=== PATIENT | female | born 1990 | race Caucasian/White ===

== ENCOUNTER → 2023-08-26 | Outpatient (CLI) | payer BC, SELFPAY ==
[2023-08-30 04:06] LABS: Chlamydia By Nucleic Acid AMP Negative (Negative); Gonococcus By Nucleic Acid AMP Negative (Negative)
[2023-08-31 10:10] LABS: HPV APTIMA, High Risk Negative (Negative)
== END | disposition home or self-care (01) ==
PROVIDERS: Visit Provider Advanced Practice Midwife
DX: O09.90 Supervision of high risk pregnancy, unspecified, unspecified trimester (principal); Z3A.00 Weeks of gestation of pregnancy not specified
CPT/HCPCS: 87086; 87088; 87491; 87591; 87624; 88175; G0145

== ENCOUNTER → 2023-10-22 | Outpatient (CLI) | payer BC, SELFPAY ==
[2023-10-22 10:56] LABS: Absolute Lymphocyte Count 1.58 X10^3/uL (0.83-4.51); Absolute Neutrophil Count 6.7 X10^3/uL (2.0-7.7); Basophil# 0.02 X10^3/uL; Basophil% 0.2 % (0-1); Eosinophil# 0.05 X10^3/uL; Eosinophils% 0.5 % (0-5); Hematocrit 40.7 % (37-47); Hemoglobin 14.2 g/dL (12.0-15.0); Lymphocyte # 1.58 X10^3/ul (0.83-4.51); Lymphocyte % 17.3 % (19-41); Mean Corp Hgb Conc 34.9 g/dL (32-36); Mean Corpuscular Hgb 33.2 pg (27.0-32.0); Mean Corpuscular Volume 95.1 fL (81-99); Mean Platelet Vol. 11.5 fl (6.2-12.0); Monocyte# 0.76 X10^3/uL; Monocyte% 8.3 % (0-10); NRBC Flagged by Analyzer 0 % (0-5); Neutrophil # 6.68 X10^3/uL (2.7-7.7); Neutrophil % 73.3 % (47-70); Platelet Count 201 K/mm3 (150-450); RBC Distribution Width CV 12.8 % (11.6-14.6); RBC Distribution Width SD 44.5 fl (35.1-43.9); Red Blood Count 4.28 M/mm3 (4.2-5.4); White Blood Count 9.1 K/mm3 (4.4-11.0)
[2023-10-22 12:08] LABS: HIV - WCH Non-Reactive (Nonreactive); Hepatitis B Surface Antigen Non-Reactive (Nonreactive); Hepatitis C Antibody Non-Reactive (Nonreactive); Rubella IgG Reactive (Nonreactive); Syphilis Antibodies Non-reactive
== END | disposition home or self-care (01) ==
PROVIDERS: Referring Provider Advanced Practice Midwife; Visit Provider Advanced Practice Midwife
DX: O09.90 Supervision of high risk pregnancy, unspecified, unspecified trimester (principal)
CPT/HCPCS: 36415; 85025; 86703; 86762; 86780; 86803; 86850; 86900; 86901; 87340

== ENCOUNTER → 2023-12-30 | Outpatient (CLI) | payer BC, SELFPAY ==
[2023-12-30 10:23] LABS: Absolute Lymphocyte Count 1.36 X10^3/uL (0.83-4.51); Absolute Neutrophil Count 7.4 X10^3/uL (2.0-7.7); Basophil# 0.03 X10^3/uL; Basophil% 0.3 % (0-1); Eosinophil# 0.06 X10^3/uL; Eosinophils% 0.6 % (0-5); Hematocrit 40.5 % (37-47); Hemoglobin 13.8 g/dL (12.0-15.0); Lymphocyte # 1.36 X10^3/ul (0.83-4.51); Lymphocyte % 13.6 % (19-41); Mean Corp Hgb Conc 34.1 g/dL (32-36); Mean Platelet Vol. 11.5 fl (6.2-12.0); Monocyte# 1.04 X10^3/uL; Monocyte% 10.4 % (0-10); NRBC Flagged by Analyzer 0 % (0-5); Neutrophil # 7.41 X10^3/uL (2.7-7.7); Neutrophil % 74.4 % (47-70); Platelet Count 190 K/mm3 (150-450); RBC Distribution Width CV 12.4 % (11.6-14.6); RBC Distribution Width SD 42.8 fl (35.1-43.9); Red Blood Count 4.31 M/mm3 (4.2-5.4)
[2023-12-30 10:25] LABS: Glucose Challenge Gest 1H 50g 96 mg/dL (70-140)
[2023-12-30 11:00] LABS: HIV - WCH Non-Reactive (Nonreactive); Syphilis Antibodies Non-reactive
== END | disposition home or self-care (01) ==
LOC: PAVLAB 09:55
PROVIDERS: Referring Provider Obstetrics & Gynecology; Visit Provider Obstetrics & Gynecology
DX: O09.92 Supervision of high risk pregnancy, unspecified, second trimester (principal); Z3A.27 27 weeks gestation of pregnancy
CPT/HCPCS: 36415; 82950; 85025; 86703; 86780

== ENCOUNTER 2024-01-10 20:25 | Outpatient (CLI) | payer BC, SELFPAY ==
[2024-01-10 20:38] VITALS: PULSE 81; O2SAT 97
[2024-01-10 20:40] VITALS: BP 108/69; PULSE 87
[2024-01-10 20:41] VITALS: RESP 18; TEMP 36.8
[2024-01-10 20:45] VITALS: BMI 27.3
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
== END 2024-01-10 21:35 | disposition home or self-care (01) ==
LOC: WPOUT 20:27 → WP 20:28
PROVIDERS: Referring Provider Advanced Practice Midwife; Visit Provider Advanced Practice Midwife
DX: O43.113 Circumvallate placenta, third trimester (principal); O09.93 Supervision of high risk pregnancy, unspecified, third trimester; Z87.891 Personal history of nicotine dependence; Z3A.30 30 weeks gestation of pregnancy
CPT/HCPCS: 59025; 59050; 99221; G0378

== ENCOUNTER → 2024-02-17 | Outpatient (CLI) | payer BC, SELFPAY | END | disposition home or self-care (01) | LOC: LABSPEC 16:47 | PROVIDERS: Referring Provider Obstetrics & Gynecology; Visit Provider Obstetrics & Gynecology | DX: O09.92 Supervision of high risk pregnancy, unspecified, second trimester (principal); Z3A.00 Weeks of gestation of pregnancy not specified | CPT/HCPCS: 87081 ==

== ENCOUNTER 2024-03-14 13:00 | Inpatient (IN) | payer BC, SELFPAY ==
[2024-03-14] VITALS (44 sets, daily range): BP systolic 96–131; BP diastolic 53–70; PULSE 64–90; RESP 16–20; TEMP 36.1–36.8; O2SAT 89–100; BMI 29.9
[2024-03-14 12:56] LABS: ROM Internal Control Test YES-OK TO RESULT pt. (Internal QC)
[2024-03-14 12:58] LABS: ROM Patient Test POSITIVE (Negative); Record Kit Lot#, ROM+ K1972
[2024-03-14] MEDS: Lactated Ringers 1,000 ML 50 ML IV (14:20)
[2024-03-14] MEDS: Oxytocin 15 Units/NS 250ml 15 UNITS/250 ML IV.SOLN 2 UNITS IV (14:50)
[2024-03-14 14:54] LABS: Absolute Lymphocyte Count 1.98 X10^3/uL (0.83-4.51); Absolute Neutrophil Count 8.8 X10^3/uL (2.0-7.7); Basophil# 0.03 X10^3/uL; Basophil% 0.3 % (0-1); Eosinophil# 0.04 X10^3/uL; Eosinophils% 0.3 % (0-5); Hematocrit 43.8 % (37-47); Lymphocyte # 1.98 X10^3/ul (0.83-4.51); Lymphocyte % 16.7 % (19-41); Mean Corp Hgb Conc 34.2 g/dL (32-36); Mean Corpuscular Hgb 32.3 pg (27.0-32.0); Mean Corpuscular Volume 94.4 fL (81-99); Mean Platelet Vol. 12.1 fl (6.2-12.0); Monocyte% 8.4 % (0-10); NRBC Flagged by Analyzer 0 % (0-5); Neutrophil # 8.78 X10^3/uL (2.7-7.7); Neutrophil % 73.8 % (47-70); Platelet Count 190 K/mm3 (150-450); RBC Distribution Width CV 13.2 % (11.6-14.6); RBC Distribution Width SD 46.4 fl (35.1-43.9); Red Blood Count 4.64 M/mm3 (4.2-5.4); White Blood Count 11.9 K/mm3 (4.4-11.0)
--- NOTE | 2024-03-14 17:58 | HP.PCM.OB_ITS ---
HPI - General General Date of Admission: 03/14/24 HPI Narrative MELISSA FORTUNE, is a 33 y/o @ 40 weeks 0 days who presents to L&D with spontaneous rupture of membranes for possibly 24 hours. She states that her membranes were stripped yesterday by Bernie Santiago in the office and she s tarted leaking fluid almost immediately after that. This did not stop and she presented to L&D at noon today. Her ROM + was positive. She denies vaginal bleeding, fever, or decreased movement. Maternal Data Information ZELALEM Calculator Estimated Delivery Date Method Current WG Current Estimate 03/14/24 LMP (Certain) 40w 0d PFSH PFSH Medical History (Updated 03/14/24 @ 18:[address] Jayda Caraballo, DO) depression Anxiety ASCUS of cervix with negative high risk HPV Bartholin's gland cyst Home Medications ?Medication ?Instructions ?Recorded ?Last Taken ?Type multivitamin no.47-iron fum 27 1 cap PO DAILY 08/20/23 01/09/24 History mg-folate no.1 1 mg-dha 300 mg capsule (PNV-DHA) buspirone 7.5 mg tablet 7.5 mg PO TID PRN anxiety #60 tabs 01/20/24 Unknown Rx Allergy/AdvReac Type Severity Reaction Status Date / Time Tetracyclines Allergy Severe Hives Verified 03/14/24 14:20 Family History Mother Hepatitis, autoimmune Aunt Thyroid disorder Father Thyroid disorder, Onset Age: 37 Grandfather Cancer, Onset Age: 73 Paternal- colon Grandmother Heart disease Maternal- A-fib Sister Autism Other Myocardial infarction Surgical History History of tonsillectomy and adenoidectomy [place] teeth extracted Social History adopted: No household members: spouse and children number of children: 1 current occupational status: unemployed current occupation: [employer] current occupational exposures/hazards: No pets and animals: Yes (Avoid litter box) pets and animals: cat(s) history of recent travel: No sexually active: Yes Smoking Status: Former smoker quit date: 10/27/20 Tobacco: How many years used: 11 Electronic Cigarette Use: with nicotine how long ago did patient quit smokin alcohol intake: current alcohol intake frequency: holidays/special occasions only details: Not while substance use type: does not use well-balanced diet: daily or most days caffeine: Yes Type: coffee Number of servings: 2 eating out: 1-3 times/week during the past year weight has: decreased > 10 lbs what type of physical activity do you participate in: bicycling frequency: 3-4 times per week duration: 15-30 minutes/day basilio/spiritism: Pentecostalism seatbelt use: always do you feel safe at home: Yes 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 Date Name GA/Weeks Outcome Route Bth Weight Gen [facility] FOB 08/17/21 Tayler 40 live - full term 7#9oz Female 34 hrs epidural Bettie Frye Delivery Date: 08/17/21 Last Updated by: Brooklynn Olmstead pt and baby HR dropped, medication given Visit Details Expected Delivery Route/Plan Labor Preferences- CB/BF classes: discussed labor support person: Uday labor intervention preferences: [] pain management options preferred: unmedicated cut cord/dad catch: [] : wants PP control planned: [] discussed possible routes of delivery and associated risks: [] special requests: [] Plans Covid status: [] Flu vaccine: [] Tdap vaccine: [] Rhogam: [] LARC form signed: [] Problem list reviewed and updated with the most current plan of care details and appropriate orders placed. Relevant counseling for the gestational age provided. Continue routine care and follow up unless otherwise noted in visit notes/problem list details OB Flowsheet Initial Weight: Not Recorded Date -?-?-?-?-?-?-?-?-?-?-?-?- EGA Weight BP Urine Prot -?-?-?-?-?-?-?-?-?-?-?-?- Glucose FHR FuHt Pres Dilation -?-?-?-?-?-?-?-?-?-?-?-?- Effaced St Visit Note 08/26/23 -?-?-?-?-?-?-?-?-?-?-?-?- 11w 2d 123 lb 6 oz 118/68 -?-?-?-?-?-?-?-?-?-?-?-?- 161 -?-?-?-?-?-?-?-?-?-?-?-?- KW-CRL cons with dates. declines NIPT. 09/23/23 -?-?-?-?-?-?-?-?-?-?-?-?- 15w 2d 126 lb 6 oz 95/59 Nega tive -?-?-?-?-?-?-?-?-?-?-?-?- Negative 155 -?-?-?-?-?-?-?-?-?-?-?-?- JV- pt having fl air of sciatic nerve pain. experienced a pelvic torsion last and saw PT. She wants to go back to them and inquires about chiropractor as well. 10/25/23 -?-?-?-?-?-?-?-?-?-?-?-?- 19w 6d 133 lb 2 oz 112/62 Nega tive -?-?-?-?-?-?-?-?-?-?-?-?- Negative 151 -?-?-?-?-?-?-?-?-?-?-?-?- MH-No VB. Very t earful. She and very concerned about MFM US results. No tachycardia today. Will have SM call. Did order echo. 11/01/23 -?-?-?-?-?-?-?-?-?-?--?-?- 20w 6d 134 lb 8 oz 99/60 Nega tive -?-?-?-?-?-?-?-?-?-?-?-?- Negative 153 -?-?-?-?-?-?-?-?-?-?-?-?- MH-No VB and fee ling good movement. Feeling better from last weeks discussion. echo not scheduled yet. 11/09/23 -?-?-?-?-?-?-?-?-?-?-?-?- 22w 0d 136 lb 95/60 Negative -?-?-?-?-?-?-?-?-?-?-?-?- Negative 145 -?-?-?-?-?-?-?-?-?-?-?-?- Sm- no vb lof no regular ctx, needs scheduled for echo, discussed weekly fht until echo and additional MFM recommendation 11/26/23 -?-?-?-?-?-?-?-?-?-?-?-?- 24w 3d 141 lb 110/60 Negative -?-?-?-?-?-?-?-?-?-?-?-?- Negative 140 -?-?-?-?-?-?-?-?-?-?-?-?- SM- echo n ext week, normal heart rate. no vb lof good fm no regular ctx. 12/20/23 -?-?-?-?-?-?-?-?-?-?-?-?- 27w 6d 145 lb 103/66 Negative -?-?-?-?-?-?-?-?-?-?-?-?- Negative 151 27 -?-?-?-?-?-?-?-?-?-?-?-?- JV- no lof, va g inal bleeding, or dec fm. needs 28 week labs still. flu shot today. tdap next time. 01/07/24 -?-?-?-?-?-?-?-?-?-?-?-?- 30w 3d 148 lb 2 oz 109/73 Nega tive -?-?-?-?-?-?-?-?-?-?-?-?- Negative 150 29 -?-?-?-?--?-?-?-?-?-?-?-?- LC- no vb/ctx/lo f. good fm. reviewed low back pain prevention. low intervention desired- recommended just breath course. 01/20/24 -?-?-?-?-?-?-?-?-?-?-?-?- 32w 2d 153 lb 6 oz 95/54 Nega tive -?-?-?-?-?-?-?-?-?-?-?-?- Negative 145 32 -?-?-?-?-?-?-?-?-?-?-?-?- JV- no lof, vagi nal bleeding, or dec fm. larc signed, tdap today. having worse and worse anxiety. will try buspar. JV- no lof, vaginal bleeding , or dec fm. larc signed, tdap today. having worse and worse anxiety. will try buspar. no suicidal ideations. 02/03/24 -?-?-?-?-?-?-?-?-?-?-?-?- 34w 2d 158 lb 99/61 Negative -?-?-?-?-?-?-?-?-?-?-?-?- Negative 130 34 -?-?-?-?-?-?-?-?-?-?-?-?- KW- no vb/lof/ct x. good fm. did not start buspar but doing well now 02/17/24 -?-?-?-?-?-?-?-?-?-?-?-?- 36w 2d 159 lb 4 oz 106/66 Nega tive -?-?-?-?-?-?-?-?-?-?-?-?- Negative 136 35 -?-?-?-?-?-?-?-?-?-?-?-?- JV_ GBS collecte d, declines pelvic exam. no complaints. 02/21/24 -?-?-?-?-?-?-?-?-?-?-?-?- 36w 6d 161 lb 111/63 Negative -?-?-?-?-?-?-?-?-?-?-?-?- Negative 120 36 -?-?-?-?-?-?-?-?-?-?-?-?- KW- no vb/lof/ct x. good fm. labor precautions 02/28/24 -?-?-?-?-?-?-?-?-?-?-?-?- 37w 6d 163 lb 98/54 Trace -?-?-?-?-?-?-?-?-?-?-?-?- Negative 125 38 -?-?-?-?-?-?-?-?-?-?-?-?- KW- no vb/lof/ct x. good fm. declines SVE. discussed labor positions and plan. 03/09/24 -?-?-?-?-?-?-?-?-?-?-?-?- 39w 2d 164 lb 97/52 Negative -?-?-?-?-?-?-?-?-?-?-?-?- Negative 130 39 Cephalic 3 -?-?-?-?-?-?-?-?-?-?-?-?- 70 -2 KW- no vb/ lof/ctx. good fm. membrane sweep requested 03/13/24 -?-?-?-?-?-?-?-?-?-?-?-?- 39w 6d 164 lb 117/76 Negative -?-?-?-?-?-?-?-?-?-?-?-?- Negative 130 40 Cephalic 4 -?-?-?-?-?-?-?-?-?-?-?-?- 80 -2 KW- no vb/ lof/ctx. good fm. membrane sweep today ROS Constitutional Constitutional: Denies change in weight, fatigue, fever(s), headache(s), poor appetite or weakness Eyes Eyes: Denies blurry vision, change in vision, seeing flashes or spots in vision ENT HEENT: Denies dizziness, headache(s), loss taste/smell or sore throat Cardiovascular Cardiovascular: Denies chest pain, dizziness, dyspnea, irregular heart rhythm, leg edema, palpitations, rapid heart rate or vomiting Respiratory/Chest Respiratory/Chest: Denies chest tightness, cough, dyspnea or breast pain Gastrointestinal Gastrointestinal: Denies abdominal pain, anorexia, constipation, cramping, diarrhea, hemorrhoids, vomiting or weight changes Genitourinary Genitourinary: Denies dysuria, flank pain, genital lesions, genital pain, urinary frequency or urinary urgency Musculoskeletal Musculoskeletal: Denies back pain, difficulty walking, joint pain, limited range of motion, muscle cramps or numbness Integumentary Integumentary: Denies lesions or unusual bruising Neurologic Neurologic: Denies abnormal movements, abnormal speech, dizziness, numbness, seizure-like activity or syncope Psychiatric Psychiatric: Denies anxiety, behavioral changes, change in appetite, change in libido, cognitive impairment, confusion, depression, difficulty concentrating, hallucinations or suicidal thoughts Endocrine Endocrinology: Denies excessive sweating, polydipsia or polyuria Hematologic/Lymphatic Hematologic/Lymphatic: Denies easy bleeding, easy bruising or lymphadenopathy Allergic/Immunologic Allergic/Immunologic: Denies itchy eyes, lip swelling, seasonal rhinorrhea, rhinitis, throat swelling, tongue swelling, eczemia, wheezing or asthma Vital Signs Vital Signs Vital Signs: 03/14/24 12:28 03/14/24 12:28 03/14/24 12:28 Temperature Temperature Source Tympanic Pulse Rate 75 Respiratory Rate Blood Pressure 118/70 BP Systolic 118 BP Diastolic 70 Pulse Ox 03/14/24 12:28 03/14/24 14:52 03/14/24 14:52 Temperature 98.0 F Temperature Source Temporal Pulse Rate Respiratory Rate 16 Blood Pressure BP Systolic BP Diastolic Pulse Ox 03/14/24 14:52 03/14/24 14:53 03/14/24 14:53 Temperature 97.2 F L Temperature Source Pulse Rate 67 Respiratory Rate Blood Pressure 100/55 L BP Systolic 100 BP Diastolic 55 Pulse Ox 03/14/24 15:16 03/14/24 15:16 03/14/24 15:21 Temperature Temperature Source Pulse Rate 64 80 Respiratory Rate Blood Pressure BP Systolic BP Diastolic Pulse Ox 99 03/14/24 15:21 03/14/24 16:08 03/14/24 16:08 Temperature Temperature Source Temporal Pulse Rate Respiratory Rate Blood Pressure 96/56 L BP Systolic 96 BP Diastolic 56 Pulse Ox 100 03/14/24 16:08 03/14/24 16:08 03/14/24 16:08 Temperature 98.0 F Temperature Source Pulse Rate 78 Respiratory Rate 16 Blood Pressure BP Systolic BP Diastolic Pulse Ox 03/14/24 17:38 03/14/24 17:38 03/14/24 17:38 Temperature 98.2 F Temperature Source Temporal Pulse Rate Respiratory Rate 20 H Blood Pressure BP Systolic BP Diastolic Pulse Ox 03/14/24 17:39 03/14/24 17:39 03/14/24 17:39 Temperature Temperature Source Pulse Rate 75 Respiratory Rate Blood Pressure 99/54 L BP Systolic 99 BP Diastolic 54 Pulse Ox 99 03/14/24 17:39 Temperature Temperature Source Pulse Rate 74 Respiratory Rate Blood Pressure BP Systolic BP Diastolic Pulse Ox Weight Weight: 164 lb Body Mass Index (BMI) 29.9 Physical Exam Const alert, oriented x3, no apparent distress and healthy appearing General Appearance: cooperative; Negative for anxious HEENT normocephalic Face and Sinus: normal facial exam Eyes EOMs intact bilaterally and no scleral icterus General Eye: normal appearance of both eyes Neck full ROM and supple Lymph Lymphatic: no lymphadenopathy noted Chest Chest: abnormal inspection of the chest Resp normal respiratory effort Effort and Inspection: able to speak in complete sentences Cardio regular rate GI soft to palpation and non-tender Inspection: gravid Palpation: soft; Negative for tender external exam normal Amniotic Fluid: ROM+plus Back/Spine no CVA tenderness Extremity normal to inspection, full ROM and no clubbing, cyanosis or edema General Extremity: Negative for calf tenderness or edema Skin Lesions: no lesions Rashes: no rashes Psych mental status grossly normal Labs Labs Labs: Blood Type A POSITIVE Antibody Screen NEGATIVE Hct 43.8 % (37-47) Hgb 15.0 g/dL (12.0-15.0) Syphilis Total Ab Non-reactive Rubella IgG Antibody Reactive (Nonreactive) Hep Bs Antigen Non-Reactive (Nonreactive) Hepatitis C Antibody Non-Reactive (Nonreactive) Chlamydia DNA (DALE) Negative (Negative) N.gonorrhoeae DNA (DALE) Negative (Negative) HIV 1&2 Antibody Non-Reactive (Nonreactive) Glucose 1 Hr 50 gm 96 mg/dL (70-140) Assessment & Plan (1) SROM (spontaneous rupture of membranes): (2) Circumvallate placenta: QUALIFIERS: Trimester: second trimester Qualified Code(s): O43.112 - Circumvallate placenta, second trimester COMMENT: growth q 4 weeks-63% (3) Former smoker: COMMENT: cigarettes & vape, quit 2020 (4) Anesthesia complication: QUALIFIERS: Encounter type: sequela Qualified Code(s): T88.59XS - Other complications of anesthesia, sequela COMMENT: epidural dropped pt and baby's HR, had to have medication to raise HR, Nausea (5) Seasonal allergies: (6) Supervision of high-risk : QUALIFIERS: Trimester: second trimester Qualified Code(s): O09.92 - Supervision of high risk , unspecified, second trimester COMMENT: PRR , ZELALEM 03/14/24, PC Tayler, Uday (7) : QUALIFIERS: Weeks of gestation: 39 weeks Qualified Code(s): Z3A.39 - 39 weeks gestation of COMMENT: GBS neg, normal anatomy, discussed genetic & carrier testing- declined (8) Hx of depression, currently : (9) Anxiety: PLAN: Plan Patient presents with PROM- no cervical change now since yesterday in the office. Starting pitocin. Pain management: no epidural. She is worried about blood pressure dropping. GBS negative. Management of any complications: none I have reviewed the [facility] and made any clinically relevant updates.
[2024-03-14] MEDS: Lactated Ringers 1,000 ML 999 ML IV (18:50)
[2024-03-14] MEDS: Lidocaine 1% (20 ml mdv) 20 ML Vial INFILT (19:08)
--- NOTE | 2024-03-14 19:28 | EX.PCM.OBVAG ---
Assessment & Plan (1) bradycardia: (2) SROM (spontaneous rupture of membranes): (3) Circumvallate placenta: QUALIFIERS: Trimester: second trimester Qualified Code(s): O43.112 - Circumvallate placenta, second trimester COMMENT: growth q 4 weeks-63% (4) Former smoker: COMMENT: cigarettes & vape, quit 2020 (5) Anesthesia complication: QUALIFIERS: Encounter type: sequela Qualified Code(s): T88.59XS - Other complications of anesthesia, sequela COMMENT: epidural dropped pt and baby's HR, had to have medication to raise HR, Nausea (6) Supervision of high-risk : QUALIFIERS: Trimester: second trimester Qualified Code(s): O09.92 - Supervision of high risk , unspecified, second trimester COMMENT: PRR , ZELALEM 03/14/24, ROSARIO Lester, Uday (7) : QUALIFIERS: Weeks of gestation: 39 weeks Qualified Code(s): Z3A.39 - 39 weeks gestation of COMMENT: GBS neg, normal anatomy, discussed genetic & carrier testing- declined (8) Hx of depression, currently : Maternal Data Information ZELALEM Calculator Estimated Delivery Date Method Current WG Current Estimate 03/14/24 LMP (Certain) 40w 0d Final ZELALEM: 03/14/24 Gestational age: 40 weeks 0 days [place] Doctor Who Attended Delivery: Nicki Stock Vaginal Delivery Maternal Presentation Maternal Presentation: Spontaneous Rupture of Membranes Type of Induction: Pitocin Vaginal Delivery Information Procedure Performed: Vacuum Assisted Vaginal Delivery Station at time of placement: +2 Number of vacuum pulls: 2 Number of vacuum pop offs: 1 and Shoulder Dystocia Maneuvers Delivery maneuver performed for shoulder dystocia: Daryl maneuver, Suprapubic pressure, Posterior arm extraction and Nash maneuver Head to body interval: 01:30 Surgeon/Practitioner: Jayda Caraballo Date of Procedure: 03/14/24 Pre-Procedure Diagnosis: 33 y/o @ 40 weeks, 0 days, terminal bradycardia, shoulder dystocia Post-Procedure Diagnosis: same as preop Type of anesthesia: None Estimated Blood Loss: 200cc Time of Delivery: 19:05 Findings Description of procedure: Details of delivery: This is a 33 year old G 2 P 1 woman who was admitted to labor and delivery for spontaneous rupture of membranes for up to 24 hours suspected. The patient was admitted to labor and delivery with Pitocin augmentation that was turned off after only a couple of hours due to decelerations. The patient progressed to complete the decision was made to perform a vacuum extraction due to terminal bradycardia in the 70s for several minutes. The risk benefits and alternatives of the procedure were discussed with the patient and verbal consent was obtained. The was noted to be at a +2 station, the cervix was completely dilated. The infant's head was noted to be in the right occiput anterior presentation. The vacuum was placed in the correct placement in front of the posterior fontanelle. This was confirmed digitally. With the patient's next contraction, the vacuum was inflated and a gentle downward pressure was used to assist with bringing the baby's head to a +3 station. With 2 pulls and 1 pop offs. The head was delivered atraumatically. A nuchal cord was noted. And reduced without difficulty. The anterior shoulder was noted to be stuck despite hard pushing from the patient. Suprapubic pressure was applied at the same time Daryl maneuver was performed. A wood screw and Nash maneuver were both performed quickly without much movement of the baby. The posterior arm was identified and followed down to the infants elbow and gently tugged while the patient was pushing eventually the posterior arm came free and delivered this allowed the anterior shoulder to deliver without difficulty. The was handed off to the patient's chest. The infant was found to have poor tone and was not crying the cord was clamped and cut immediately and the infant was handed off to the waiting chemical waste management technician for resuscitation. The placenta was delivered with gentle traction and uterine massage. Inspection of the vagina cervix and perineum was performed. There were no lacerations to the vagina or to the cervix. The peritoneum was found to have a second-degree perineal laceration. The perineal laceration was closed using a 2-0 Vicryl in the usual sterile fashion. The patient tolerated the procedure well sponge lap and needle counts were correct x2 and she is now recovering in stable condition. Presentation: Vertex Amniotic Membrane Rupture Type: Spontaneous Amniotic Fluid Description: Clear Placental Delivery Description: Spontaneous Placenta Disposition: Sent to Pathology Specimen collected: Yes Description of specimen(s) removed: placenta Cord Vessel Description: 3 Vessels Cord Entanglement: Around neck x 1, loose A Gender: Male (1 minute): 6 (5 minute): 9 Delayed Cord Clamping: No Transmissions Systems Operator director of golf: No Post Vaginal Deli Medications given after delivery: IV Pitocin Episiotomy Description: None Laceration: 2nd degree Complication Complications: No Multi Select Codes Urinary/Genital Urinary/Genital CPT Codes: 11911 Vaginal Delivery [facility]
--- NOTE | 2024-03-14 19:38 | DCINST_ITS ---
Discharge Instructions Diet Discharge Diet: No restrictions DC O2, CPAP, BIPAP needs Additional Home O2 Discharge instructions: No Dressing / Incision Discharge Activity: Return to Normal Activity, May Not Drive (while taking na rcotic pain medications.) and May Shower May resume sexual activity in: 4-6 weeks Dressing / Incision Call your doctor if your incision/area has: Continuous Slow Oozing, Sudden Increased Bleeding, Increased Pain/ Swelling, Increased Redness and Foul Smelling Discharge Follow Up Care Please Follow Up With: Jayda Caraballo DO When: Call [phone] to make an appointment with your doctor in 6 weeks. If you had elevated blood pressure or 4th degree laceration, you will need to be seen in 2 weeks. Test Results: Test results from this visit will be discussed in further detail at your follow- up appointment, if applicable. Discharge Plan Admission Admit Date/Time: 03/14/24 13:00 Attending Provider: Jayda Caraballo Primary Care Provider: Care Physician,No Primary Discharge Orders/Prescriptions Prescriptions: No Action PNV-DHA 27 mg iron-1 mg -300 mg capsule 1 cap PO DAILY buspirone 7.5 mg tablet 7.5 mg PO TID PRN (Reason: anxiety) Qty: 60 3RF Referrals / Follow Up: Care Physician,No Primary [Primary Care Provider] -
--- NOTE | 2024-03-14 19:51 | PLAC_PTH ---
PATIENT: MELISSA FORTUNE LOC: WP U#:[id number] AGE/SX: 33/ ROOM: WP008 RE03/14/[address]: Dr. Jayda Caraballo DO : 1990 BED: 1 DIS: 03/16/2024 SPEC #: [id number] RECD: 03/14/24 20:34 STATUS: MARIANO ALYSSA #: [id number] ALEK: 03/14/24 19:[address]: Jayda Caraballo DEPT: SURGICAL PATHOLOGY RECD BY: Meir Cohen ENTERED: 03/15/24 11:15 SP TYPE: PLACENTA OTHR DR: No Primary Care Phys Tissues: Placenta, NOS Procedures: Surgery Specimen Level V HEADER OPERATION: Delivery PRE-OP DIAGNOSIS: Circumvallate placenta TISSUE SUBMITTED: Placenta MICROSCOPIC DIAGNOSIS Placenta: Placental disc - third trimester placenta (481 gm). Membranes - Mild acute chorioamnionitis. - Focal circumvallate insertion. Umbilical cord - three blood vessels and no pathologic diagnosis. SJ: 03/17/2024 MICROSCOPIC DESCRIPTION Slides are reviewed. GROSS DESCRIPTION SPECIMEN: PLACENTA / CLINICAL INFORMATION: A. Weight: 3.57 kg B. Gestational Age: 39 weeks C. Sex: Male PLACENTAL WEIGHT (POST FIXATION): 481 gm PLACENTAL DIMENSIONS: 20.0 x 17.0 x 2.5 cm PLACENTAL SHAPE: Usual ovoid PLACENTAL WEIGHT FOR GESTATIONAL AGE: Within 10-99th percentile MEMBRANES - Present A. Insertion: In 1/4 circumference of the placenta, membranes are inserted 1.0cm away from the margin. B. Site of rupture from edge: 7.0 cm from edge of placental disc C. Color of membrane: Henriquez-mucoidy D. Abnormalities: None UMBILICAL CORD - Present A. Color: Henriquez-hauser B. Insertion: Central C. Length: 54.0 cm D. Diameter: 1.4 cm E. Number of vessels: Three F. Abnormalities: None PLACENTAL DISC - Present A. Color of surface: Henriquez-hauser B. surface abnormalities: None C. Maternal cotyledons: Intact with minimal tears D. Attached retro placental clot: No clot E. Cut surface: Dark red and spongy F. Lesions: None G. Separate clot: Absent SECTIONS SUBMITTED: (6 cassettes) 1. Membrane roll 2. Cord, maternal end 3. Cord, end 4. Placental disc, and maternal surfaces 5. Placental disc, and maternal surfaces 6. Placental disc, and maternal surfaces SJ.mr 03/16/2024 TC:2 CPT: 47677
[2024-03-14] MEDS: Acetaminophen 500 MG Tablet 1000 MG PO (20:11)
[2024-03-14] MEDS: Oxytocin 15 Units/NS 250ml 15 UNITS/250 ML IV.SOLN 83 UNITS IV (20:35)
[2024-03-14 22:12] LABS: Pathology Specimen OB SEE PATHOLOGY REPORT
[2024-03-15] VITALS: BP 112/57; PULSE 86; RESP 16; TEMP 37.1; O2SAT 96
[2024-03-15] MEDS: Acetaminophen 500 MG Tablet 1000 MG PO ×2 (02:33→08:14)
[2024-03-15 05:16] VITALS: BP 92/59; PULSE 71; RESP 16; TEMP 36.3; O2SAT 97
[2024-03-15] MEDS: Ibuprofen 600 MG Tablet PO ×3 (07:12→23:46)
--- NOTE | 2024-03-15 08:40 | PCM.PN.OB ---
Subjective Subjective Patient doing well without complaints. Tolerating PO. Ambulating and voiding without difficulty. Feeding well. Denies chest pain, shortness of breath, calf pain/swelling, fevers, chills, lightheadedness. Objective Data Objective Data Vital Signs: Vital Signs Temp Pulse Resp BP Pulse Ox O2 Del Method 97.3 F L 71 16 92/59 L 97 Room Air 03/15/24 05:16 03/15/24 05:16 03/15/24 05:16 03/15/24 05:16 03/15/24 05:16 03/15/24 05:16 Oxygen Delivery Method Room Air Weight: 164 lb Body Mass Index (BMI) 29.9 Intake & Output: Intake and Output for Last 24 Hours 03/13/24 03/14/24 03/15/24 23:59 23:59 23:59 Intake Total 1583.00 / 1583.00 250 / 250 Output Total 200 / 500 300 / 300 Balance 1383.00 / 1083.00 -50 / -50 Lab / Micro Data 03/14/24 14:20 Labs: Laboratory Results - last 24 hr 03/14/24 12:40: Vag Amniotic Fld Detect POSITIVE H 03/14/24 14:20: WBC 11.9 H, RBC 4.64, Hgb 15.0, Hct 43.8, MCV 94.4, MCH 32.3 H, MCHC 34.2, RDW Std Deviation 46.4 H, RDW Coeff of Yousuf 13.2, Plt Count 190, MPV 12.1 H, Immature Gran % (Auto) 0.500, Neut % (Auto) 73.8 H, Lymph % (Auto) 16.7 L, Cecil % (Auto) 8.4, Eos % (Auto) 0.3, Baso % (Auto) 0.3, Absolute Neuts (auto) 8.8 H, Absolute Lymphs (auto) 1.98, Nucleated RBC % 0, Blood Type A POSITIVE, Antibody Screen NEGATIVE Physical Exam Const alert and oriented x3 HEENT normocephalic Eyes PERRL Neck full ROM Resp normal respiratory effort GI soft to palpation GI Narrative: FF below U Assessment & Plan (1) Vacuum extractor delivery, delivered: COMMENT: 03/14/24 JV boy Andrea. shoulder dystocia PLAN: Plan s/p VAVD PPD # 1 1. routine post delivery care 2. breast feeding- support given 3. rh positive 4. rubella immune
[2024-03-15 08:51] VITALS: BP 85/49; PULSE 62; RESP 16; TEMP 36.4
[2024-03-15 13:43] VITALS: BP 93/57; PULSE 67; RESP 16; TEMP 35.8
--- NOTE | 2024-03-15 16:15 | CASEMGMT ---
Social Work Assessment Labor and Delivery Unit Patient Address:[address] [place] [id number] Phone number: [phone] Date of Referral: 03/15/24 Time of Referral:? 1540 Referred By: Dr. Caraballo Date of Intervention: ??03/15/24 Time of Intervention:? 1320 Reason for Referral:?history of anxiety and depression Sw completed chart review and acknowledges social work consult due to maternal mental health history. Sw presented to bedside and introduced self to mother of baby (BABITA- Jaine) and father of baby (LUCIE- Uday). Sw explained reason for sw involvement and completed psychosocial assessment. History obtained from: medical records, MOB and FOB. Household composition: Currently residing in the family home is LUCIE JC, their two year old daughter, Tayler and baby when ready for discharge. Parents report housing is safe and secure, no concerns. Patient's parent/guardian status:? Parents report that they were introduced to each other by mutual friends, are and have been together now for 7 years. [place] baby is second baby for both parents. No concerns reported of domestic violence or intimate partner violence. Medical History: ?BABITA is 33 year old female who is 2, para 1- now 2 following labor and delivery of . BABITA received routine care during with [facility]. BABITA presented to hospital following rupture of membranes. Baby boy was delivered on 03/14/24 via vaginal delivery at 40 weeks gestation. Baby was named Andrea Huff, who weighed 7lb 14oz with apgars of 6 and 9 at one and five minutes of life, respectfully. BABITA states that she is breast feeding and baby will be followed by Dr. Keller. Educational Status:? Both parents graduated from high school. MOB obtained her Bachelor's degree and LUCIE has his associates. FOB also a Egg P[employer]urizer. Financial Status: FOB employed as an Api Developer. BABITA is a stay at home mom. Infant Supplies: Parents have obtained all necessary baby supplies, including: car seat, safe sleep space, clothes, diapers and wipes. Childcare/Caregiver(s):? MOB will be the primary caregiver to baby. Transportation:??Both parents have their drivers license and reliable means of transportation. No barriers at this time. Programs/Agencies Involved: Parents are not connected to any community resources that help them financially. Children Services/Legal Issues:???No history of children services involvement. No issues or concerns warranting referral to be made at this time. Behavioral Health Issues: ??Mental Health History:??LUCIE denies mental health history. BABITA reports to having anxiety and experiencing depression after the of her daughter. MOB reports that she was prescribed Buspar PRN and has not needed to use it. ? Substance Use History: Parents deny substance use prior to and during .?? Family History:??Parents deny family history of substance use or significant mental health diagnoses. ??? Drug Screens: No drug screens observed during chart review. Family/Social Stressors:?Parents deny any issues, concerns or stressors. Support Systems: MOB identifies that LUCIE is a good support person for her, along with both grandma's and three really good friends. Depression/Shaken Baby/Safe Sleeping: Sw educated parents on signs and symptoms of baby blues and mood and anxiety disorders to be mindful of during this period. MOB states that when she struggled following her last delivery with intrusive anxious thoughts that she was not able to control. MOB states that she was able to recognize that she was struggling and talked to her primary care doctor. MOB denies depression, or lack of bonding with baby. MOB states that FOWhitney was a great support, and would be able to recognize if she was struggling during this period. FOB states that he would be able to support MOB. MOB denies any anxiousness, worry, or increased emotions since delivery. Sw educated parents on shaken baby prevention and ABCs of safe sleep. Parents express understanding. ASSESSMENT:? MOB and baby admitted following labor and delivery of . MOB with mental health history positive for anxiety, prescribed buspar for PRN when necessary. MOB with lots of natural supports. MOB states that she may be receptive to outpatient counselor should she experience any mental health concerns during this period. FOB was observed to be attentive to MOB and intune with her emotions. Parents were talkative, made eye contact with sw, and were engaging throughout completion of assessment. Parents have obtained all necessary baby items. PLAN:?? No other services requested or indicated. MOB and baby to be discharged when medically ready. Parents were provided literature regarding: signs and symptoms of baby blues and mood and anxiety disorders, Help Me Grow, shaken baby prevention, ABCs of safe sleep and a list of [facility] resources that are available for them should any needs present themselves. Komal Eaton, INSIDE WIREMAN, REGISTERED PHARMACIST
[2024-03-15 17:20] VITALS: BP 94/51; PULSE 60; RESP 16; TEMP 36.3
[2024-03-15 20:46] VITALS: BP 104/59; PULSE 66; RESP 14; TEMP 36.7; O2SAT 99
[2024-03-15] MEDS: Benzocaine/Lanolin/Aloe Vera 85 GM Spray 1 SPRAY TOPICAL (21:04)
[2024-03-16 01:09] LABS: Syphilis Antibodies Non-reactive
[2024-03-16 01:40] VITALS: BP 88/55; PULSE 62; RESP 16; TEMP 36.9; O2SAT 99
--- NOTE | 2024-03-16 08:11 | PCM.DC.SUM ---
Providers Date of Admission: 03/14/24 Primary Care Physician: No Primary Care Phys Reason For Visit: VAGINAL Diagnosis Discharge Diagnosis (1) Vacuum extractor delivery, delivered: Status: Acute Code(s): O75.9 - Complication of labor and delivery, unspecified Plan Patient presents with PROM- no cervical change now since yesterday in the office. Starting pitocin. Pain management: no epidural. She is worried about blood pressure dropping. GBS negative. Management of any complications: none I have reviewed the [facility] and made any clinically relevant updates. Medications at Discharge Home Medications multivitamin no.47-iron fum 27 mg-folate no.1 1 mg-dha 300 mg capsule (PNV-DHA) 1 cap PO DAILY 08/20/23 buspirone 7.5 mg tablet 7.5 mg PO TID PRN anxiety #60 tabs 01/20/24 Hospital Course Operations None Procedures - (vacuum assisted vaginal delivery ) Summary of Care Provided Minutes Spent on Discharge: 10 Hospital Course: The patient was admitted to L&D on 03/14/24 for active labor management. She progressed to complete and the tracing showed terminal bradycardia. A vacuum was used to expedite delivery and a shoulder dystocia was resolved after 1 minute and 30 seconds. Both her and the baby recovered well. On day #1 she was feeling sore and fatigued. She requested breast feeding assistance. on day #2 she was feeling better and requesting discharge to home. The patient was discharge to home in stable condition on 03/16/24. Physical Exam Const alert, oriented x3 and no apparent distress General Appearance: cooperative and comfortable Resp normal respiratory effort Cardio regular rate GI normal to inspection, nondistended, normoactive bowel sounds GI Narrative: uterus is firm below umbilicus Palpation: soft Back/Spine no CVA tenderness and thoraco-lumbar ROM normal Extremity normal to inspection, no clubbing, cyanosis or edema, no calf tenderness and no pedal edema Psych mental status grossly normal, thought process normal, cooperative, affect normal, speech normal, activity/motor behavior normal, denies homicidal ideation and denies suicidal ideation Weight / BMI Weight Weight: 164 lb Body Mass Index (BMI) 29.9 ABG / Lab / Microbiology Data 03/14/24 14:20 Laboratory: Laboratory Results - last 24 hr 03/14/24 14:20: Syphilis Total Ab Non-reactive D/C Instructions Discharge Diet: No restrictions Discharge Activity: Return to Normal Activity, May Not Drive (while taking narcotic pain medications.) and May Shower May resume sexual activity in: 4-6 weeks Call your doctor if your incision/area has: Continuous Slow Oozing, Sudden Increased Bleeding, Increased Pain/ Swelling, Increased Redness and Foul Smelling Discharge DC O2, CPAP, BIPAP Needs Home O2 Discharge instructions: No Please Follow Up With: Jayda Caraballo, DO When: Call [phone] to make an appointment with your doctor in 6 weeks. If you had elevated blood pressure or 4th degree laceration, you will need to be seen in 2 weeks. Meaningful Use Info Meaningful Use Meaningful Use Diagnoses (Choose all that apply): None applicable Ischemic Stroke Statin Dosing Therapy Reference: STATIN DOSE THERAPY REFERENCE: * Patients > 75 years receive moderate or high dose statin therapy. * Patients 75 years or YOUNGER should receive HIGH intensity statin dose unless contraindicated. You will be required to document reason for non-treatment if statin daily dose does not meet guidelines. HIGH DOSE STATIN THERAPY DAILY Atorvastatin > than or = to 40 mg Rosuvastatin > than or = to 20 mg Amlodipine + Atorvastatin > than or = to 2.5/40 mg Ezetimibe + Simvastatin 10/80 mg Simvastatin 80mg Discharge Plan Admission Admit Date/Time: 03/14/24 13:00 Attending Provider: Jayda Caraballo Primary Care Provider: Care Physician,Clara Primary Discharge Orders/Prescriptions Prescriptions: No Action PNV-DHA 27 mg iron-1 mg -300 mg capsule 1 cap PO DAILY buspirone 7.5 mg tablet 7.5 mg PO TID PRN (Reason: anxiety) Qty: 60 3RF Referrals / Follow Up: Care Physician,No Primary [Primary Care Provider] - Charges/Coding Visit Charges Inpatient E&M: 44362 Disch Hosp
[2024-03-16 09:57] VITALS: BP 88/46; PULSE 78; RESP 16; TEMP 36.5; O2SAT 99
[2024-03-16] MEDS: Senna/Docusate Sodium 1 Tablet PO (10:14)
[2024-03-16] MEDS: Ibuprofen 600 MG Tablet PO (10:14)
[2024-03-16] MEDS: Hydrocortisone 2.5% Crm 1 APPLIC TOPICAL (10:18)
[2024-03-16 13:34] VITALS: BP 92/53; PULSE 64; RESP 16; TEMP 37.3; O2SAT 98
== END 2024-03-16 14:30 | disposition home or self-care (01) | DRG 807 ==
LOC: WPOUT 13:08 → WP 13:08
PROVIDERS: Admitting Provider Obstetrics & Gynecology; Referring Provider Obstetrics & Gynecology; Visit Provider Obstetrics & Gynecology
DX: O42.02 Full-term premature rupture of membranes, onset of labor within 24 hours of rupture (principal); Z37.0 Single live birth; O99.344 Other mental disorders complicating childbirth; F41.9 Anxiety disorder, unspecified; O69.81X0 Labor and delivery complicated by cord around neck, without compression, not applicable or unspecified; O70.1 Second degree perineal laceration during delivery; O66.0 Obstructed labor due to shoulder dystocia; O76 Abnormality in fetal heart rate and rhythm complicating labor and delivery; O43.113 Circumvallate placenta, third trimester; Z3A.40 40 weeks gestation of pregnancy; Z87.891 Personal history of nicotine dependence
CPT/HCPCS: 59025; 59050; 84112; 85025; 86780; 86850; 86900; 86901; 88307; 99221; G0378